=== PATIENT | female | born 1965 | race American Indian/Alaskan Native ===

== ENCOUNTER 2017-04-07 12:51 | Day surgery (SDC) | payer BC, OTHER ==
[~2017-04-07] VITALS: Ht 167.6 cm; Wt 92.1 kg
[~2017-04-07 12:51] MED LIST: ANAPROX DS550 MG PO; IBUPROFEN200 MG PO; ZOFRAN ODT4 MG PO
[2017-04-07] MEDS ORDERED: MULTIVITAMINS1 EAC7 PO (13:15)
--- NOTE | 2017-04-07 15:54 | NUR ---
04/07/17 Lorri Gonzalez AT BEDSIDE.
--- NOTE | 2017-04-08 08:54 | OR ---
[facility] [address] [place], [place] [address] Signed DATE OF OPERATION: 04/07/2017 SURGEON: Liberty Zamora MD PREOPERATIVE DIAGNOSIS: Colon screening. POSTOPERATIVE DIAGNOSIS: Normal colon except for sigmoid diverticulosis. PROCEDURE: Total colonoscopy to cecum. ANESTHESIA: Intravenous sedation, fentanyl 150 mcg and Versed 6 mg. INDICATION: This 51-year-old woman is a patient of Dr. Warren Gregorio of [facility]. She is referred for colonoscopy for screening. She is symptom free. She has no family history of colon cancer. She did undergo appendectomy in 1993 and hysterectomy in 2003 and prior laparotomy as well. She is admitted to undergo colonoscopy for screening, understands the risks of bleeding, infection, and perforation. FINDINGS: The prep was good. Complete colonoscopy was undertaken to the cecum without question. There were numerous diverticula of the sigmoid. There was no sign of polyps or colitis. DESCRIPTION OF PROCEDURE: The patient was brought to the endoscopy suite and placed in lateral decubitus position, given intravenous sedation to the point of slurred speech and nystagmus. Digital rectal examination was normal. An Olympus video colonoscope was passed in the rectum and manipulated throughout the colon, ultimately intubating the cecum itself. The ileocecal valve and appendiceal orifice were normal. Scope was withdrawn from that point and examination throughout showed no sign of abnormality until the sigmoid and left colon where numerous diverticula were seen, most of them were wide-mouth. There was no sign of inflammation, stricture, or neoplasm. Retroflexed view of the rectum was normal as well. The scope was removed, and the patient was taken to the recovery room in good condition. CONCLUDING DIAGNOSIS: Diverticular changes of the sigmoid and left colon, otherwise normal. Electronically Signed By: LIBERTY ZAMORA MD 04/08/17 0854 PATIENT NAME: MEEK RODRIGUEZ LAURA OPERATIVE REPORT DATE OF : 67 PHYSICIAN: LIBERTY ZAMORA MD REPORT #: [id number] REPORT IS CONFIDENTIAL AND NOT TO BE RELEASED WITHOUT AUTHORIZATION [facility] [address] [place], [place] [address] Signed PLAN: Recommend high-fiber diet. Repeat colonoscopy in 10 years, sooner if clinically indicated. She will return to the ongoing care of Dr. Warren Gregorio. MD SWETA Guan/MODL /[id number] cc: Warren Gregorio MD Electronically Signed By: LIBERTY ZAMORA MD 04/08/17 0854 PATIENT NAME: MEEK RODRIGUEZ LAURA OPERATIVE REPORT DATE OF : 67 PHYSICIAN: LIBERTY ZAMORA MD REPORT #: [id number] REPORT IS CONFIDENTIAL AND NOT TO BE RELEASED WITHOUT AUTHORIZATION
== END 2017-04-07 15:55 | disposition home or self-care (01) ==
LOC: OPS 12:51 → DS 12:51 → OPS 14:00
PROVIDERS: Surgery
PROC: 0DJD8ZZ Inspection of Lower Intestinal Tract, Via Natural or Artificial Opening Endoscopic (ICD-10-PCS; principal; 2017-04-07 14:00)
DX: Z12.11 Encounter for screening for malignant neoplasm of colon (principal); K57.30 Diverticulosis of large intestine without perforation or abscess without bleeding; F17.210 Nicotine dependence, cigarettes, uncomplicated; Z90.49 Acquired absence of other specified parts of digestive tract; Z90.710 Acquired absence of both cervix and uterus; Z98.890 Other specified postprocedural states
CPT/HCPCS: 99152; 99153; J2250; J3010; J7120

== ENCOUNTER 2017-11-11 11:37 | Emergency (ER) | payer BC, OTHER ==
[~2017-11-11] VITALS: Ht 167.6 cm; Wt 92.1 kg
[~2017-11-11 11:37] MED LIST changes: +MULTIVITAMINS1 EAC7 PO
[2017-11-11] MEDS ORDERED: KEFLEX500 MG PO (13:15)
== END 2017-11-11 13:28 | disposition home or self-care (01) ==
LOC: ED 11:37
DX: N30.90 Cystitis, unspecified without hematuria (principal); F17.200 Nicotine dependence, unspecified, uncomplicated; Z79.899 Other long term (current) drug therapy
CPT/HCPCS: 81001; 99283

== ENCOUNTER 2022-11-26 19:41 | Emergency (ER) | payer OTHER ==
[~2022-11-26] VITALS: Ht 167.6 cm; Wt 92.1 kg
--- OUTSIDE RECORDS SUMMARY | ~2022-11-26 | XMS | Continuity of Care Document ---
Demographics + + + | Address | [address] | | | [place] [address] | + + + | Preferred Language | Unknown | + + + | Marital Status | Never | + + + | Alevism Affiliation | Unknown | + + + | Race | or | + + + | Ethnic Group | Unknown | + + + Author + + + | Author | [facility] | + + + | Organization | [facility] | + + + | Address | [address] | | | [place] [address] | + + + | Phone | | + + + Care Team Providers + + + + | Care Glost Tile Sorter Name | Role | Phone | + + + + Unavailable | Unavailable | + + + + Allergies No information. Encounters No information. Functional Status No information. Immunizations No information. Medications No information. Problems + + + + | date | description | facility | + + + + | 2022-04-16 11:22 | PAIN IN RIGHT SHOULDER | [facility] | + + + + Procedures No information. Results/Labs No information. Social History No information. Vital Signs No information."
--- OUTSIDE RECORDS SUMMARY | ~2022-11-26 | XMS | Continuity of Care Document ---
Demographics + + + | Address | [address] | | | [place] [address] | + + + | Preferred Language | Unknown | + + + | Marital Status | Never | + + + | Muslim Affiliation | Unknown | + + + | Race | or | + + + | Ethnic Group | Unknown | + + + Author + + + | Author | [facility] | + + + | Organization | [facility] | + + + | Address | [address] | | | [place] [address] | + + + | Phone | | + + + Care Team Providers + + + + | Care Scrap Yard Worker Name | Role | Phone | + [...]
[~2022-11-26 19:41] MED LIST changes: +CIPRO500 MG PO; +HYDROCODON-ACE1 EA10 PO; +KEFLEX500 MG PO; +METRONIDAZOLE500 MG PO; +ONDANSETRON ODT8 MG PO
[2022-11-27 00:21] VITALS: BP 154/100
== END 2022-11-27 00:21 | disposition home or self-care (01) ==
LOC: ED 19:41
DX: K57.92 Diverticulitis of intestine, part unspecified, without perforation or abscess without bleeding (principal); F17.200 Nicotine dependence, unspecified, uncomplicated
CPT/HCPCS: 36415; 74177; 76705; 80053; 81001; 83690; 85025; 96375; 99284 25; A9270; J1170; J2405; J7030; Q9967